=== PATIENT | male | born 1985 | race Caucasian/White ===

== ENCOUNTER 2020-09-03 08:49 | Outpatient (REF) | payer OTHER, SELFPAY ==
[2020-09-03 09:11] LABS: COVID-19 Test Negative (Negative)
== END 2020-09-03 08:50 | disposition home or self-care (01) ==
LOC: HO.LAB 08:49
PROVIDERS: PCP Physician Assistant; Visit Provider Internal Medicine
DX: Z20.828 Contact with and (suspected) exposure to other viral communicable diseases (principal)
CPT/HCPCS: 87635

== ENCOUNTER 2020-09-17 12:56 | Outpatient (REF) | payer OTHER, SELFPAY ==
[2020-09-17 13:19] LABS: COVID-19 Test Negative (Negative)
== END 2020-09-17 12:57 | disposition home or self-care (01) ==
LOC: HO.LAB 12:56
PROVIDERS: Visit Provider Internal Medicine
DX: Z20.828 Contact with and (suspected) exposure to other viral communicable diseases (principal)
CPT/HCPCS: 87635

== ENCOUNTER 2020-11-10 14:36 | Outpatient (REF) | payer OTHER, SELFPAY ==
[2020-11-10 15:00] LABS: COVID-19 Test Negative (Negative)
== END 2020-11-10 14:37 | disposition home or self-care (01) ==
LOC: HO.EMPCOV 14:36
PROVIDERS: PCP Physician Assistant; Visit Provider Internal Medicine
DX: Z20.828 Contact with and (suspected) exposure to other viral communicable diseases (principal)
CPT/HCPCS: 87635; C9803

== ENCOUNTER 2021-02-06 08:28 | Outpatient (REF) | payer OTHER, SELFPAY ==
[2021-02-06 09:17] LABS: COVID-19 Test Negative (Negative)
== END 2021-02-06 08:29 | disposition home or self-care (01) ==
LOC: HO.LAB 08:28
PROVIDERS: PCP Physician Assistant; Visit Provider Internal Medicine
DX: Z20.822 Contact with and (suspected) exposure to COVID-19 (principal)
CPT/HCPCS: 36415; 87635

== ENCOUNTER 2022-04-04 13:45 | Outpatient (REF) | payer OTHER, SELFPAY | END 2022-04-04 13:46 | disposition home or self-care (01) | LOC: HO.HOSX 13:45 | PROVIDERS: PCP Physician Assistant; Visit Provider Physician Assistant | DX: Z13.89 Encounter for screening for other disorder (principal) ==

== ENCOUNTER 2022-04-20 07:28 | Outpatient (REF) | payer OTHER, SELFPAY ==
--- NOTE | ~2022-04-20 | XR_ITS ---
EXAMINATION: XR CLAVICLE, LEFT CLINICAL INFORMATION: Left shoulder COMPARISON: 04/02/2022 TECHNIQUE: 2 views of left clavicle of the left clavicle. FINDINGS: There is comminuted fracture of midshaft of left clavicle with overlapping fragments, unchanged significantly since the previous study. XR/XR clavicle LT IMPRESSION: Stable clinical or fracture
== END 2022-04-20 07:29 | disposition home or self-care (01) ==
LOC: HO.HOSX 07:28
PROVIDERS: Visit Provider Physician Assistant
DX: S42.002D Fracture of unspecified part of left clavicle, subsequent encounter for fracture with routine healing (principal)
CPT/HCPCS: 73000

== ENCOUNTER 2022-05-04 07:54 | Outpatient (REF) | payer OTHER, SELFPAY ==
--- NOTE | ~2022-05-04 | XR_ITS ---
EXAMINATION: XR CLAVICLE, LEFT CLINICAL INFORMATION: Fracture mid left clavicle. Follow-up. COMPARISON: Radiographs left clavicle 04/20/2022, left shoulder 05/22/2017 TECHNIQUE: Two views of the left clavicle. FINDINGS: Mid left clavicular fracture is stable from prior study 04/20/2022. Distal fracture fragment is inferior by almost one bone diameter and there is overlap of the fracture fragments by approximately 2.8 cm. Fracture line still seen. No significant callus formation. Acromioclavicular alignment normal. Left lung apex is clear. No pneumothorax or pleural reaction. XR/XR clavicle LT IMPRESSION: Mid left clavicular fracture, unchanged in alignment.
== END 2022-05-04 07:55 | disposition home or self-care (01) ==
LOC: HO.HOSX 07:54
PROVIDERS: Visit Provider Physician Assistant
DX: M89.8X1 Other specified disorders of bone, shoulder (principal)
CPT/HCPCS: 73000

== ENCOUNTER 2022-06-06 15:01 | Outpatient (REF) | payer OTHER, SELFPAY ==
--- NOTE | ~2022-06-06 | XR_ITS ---
EXAMINATION: XR CLAVICLE, LEFT CLINICAL INFORMATION: Left clavicle fracture follow up. COMPARISON: 05/04/2022 and studies dating back to 04/02/2022. TECHNIQUE: Two views of the left clavicle. FINDINGS: There is no change in alignment of the left clavicle fracture just proximal to the coracoclavicular ligaments. No periosteal new bone formation is appreciated. There remains overriding of the fracture fragments by approximately 2.5 cm. The acromioclavicular joint appears to be intact. There is no widening of the coracoclavicular space. No shoulder dislocation. XR/XR clavicle LT IMPRESSION: Stable appearance of left clavicle fracture as described.
== END 2022-06-06 15:02 | disposition home or self-care (01) ==
LOC: HO.HOSX 15:01
PROVIDERS: Visit Provider Physician Assistant
DX: M89.8X1 Other specified disorders of bone, shoulder (principal)
CPT/HCPCS: 73000

== ENCOUNTER 2022-08-01 12:28 | Outpatient (REF) | payer OTHER, SELFPAY ==
--- NOTE | ~2022-08-01 | XR_ITS ---
EXAMINATION: XR CLAVICLE, LEFT CLINICAL INFORMATION: Left clavicle fracture COMPARISON: 05/27/2022 TECHNIQUE: Two views of the left clavicle. FINDINGS: Stable alignment of the mid left clavicle fracture with displacement and overriding. No definite osseous bridging. XR/XR clavicle LT IMPRESSION: No change in appearance of the overriding left clavicle fracture. No definite osseous bridging.
== END 2022-08-01 12:29 | disposition home or self-care (01) ==
LOC: HO.HOSX 12:28
PROVIDERS: Visit Provider Physician Assistant
DX: S92.002A Unspecified fracture of left calcaneus, initial encounter for closed fracture (principal)
CPT/HCPCS: 73000

== ENCOUNTER 2022-08-04 14:00 | Outpatient (RCR) | payer OTHER, SELFPAY ==
--- NOTE | 2022-05-24 10:47 | MHC.PT.EP ---
[facility] [place] Office [place] Office [place] Office [address] Amador Kimbrough [address] [phone] F: [phone] F: [phone] F: [phone] F: [phone] Physical Therapy Plan of Care Date of Evaluation: Date of Surgery: N/A Diagnosis: S42.002A: fracture of unspecified part of left clavicle, initial encounter for closed fracture (RC) Assessment: pt presents to physical therapy with pain, decreased range of motion, decreased strength, impaired functional mobility, impaired postural awareness, and gait deviations. pt is a good candidate for skilled PT due to age, potential remediation of impairments, typical disease/condition progression and prognosis, comorbidities, and motivation. pt would benefit from tailored strengthening and stretching exercise program, functional training, gait training, postural re-training, neuromuscular re-education, modalities as needed for pain, equipment safety demonstration. Frequency and Duration: The patient will be seen 2x/wk for 5 wks Short Term Goals: pt will be I w/ HEP to promote self-management of condition. 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 Fdc Goals: pt will improve L shoulder flexion and abduction to at least 4/5 to improve ease in carrying equipment at work. pt will report a statistically significant improvement in self-reported outcome measure, SPADI, to promote return to PLOF. Treatment Plan: Modalities to reduce pain, spasms and effusion. Manual therapy to restore motion and function. Therapeutic exercise to improve strength and flexibility. Neuromuscular re-education for posture and balance. Therapeutic activities to return to functional activities of daily living. Electronically signed by: Griselda Kruger PT, DPT Please sign and return to therapist. Thank you for your referral.
--- NOTE | 2022-08-05 15:56 | MHC.PT.DC ---
[facility] [place] Office [place] Office [place] Office [address] Amador Kimbrough [address] [phone] F: [phone] F: [phone] F: [phone] F: [phone] Physical Therapy Discharge Report Diagnosis: S42.002A: fracture of unspecified part of left clavicle, initial encounter for closed fracture (RC) Date of Surgery: N/A Date of Evaluation: 05/24/22 Date of Discharge: 08/05/22 Treatments to Date: 15 Cancellations to Date: 0 No Shows to Date: 0 Discharge Status: Improved Function Independent with HEP Discharge Summary: The patient overall has been consistently reporting little to no pain localized to clavicular region, little to no difficulty with household or work-related tasks, and overall improved function since starting PT. He is independent with his home exercise program for self-management of symptoms at this time. He is discharged from this physical therapy plan of care. Electronically signed by: Griselda Kruger PT, DPT Please sign and return to therapist. Thank you for your referral.
== END 2022-08-05 15:56 | disposition home or self-care (01) ==
LOC: HO.PT 14:00
PROVIDERS: PCP Physician Assistant; Visit Provider Physician Assistant
DX: S42.002A Fracture of unspecified part of left clavicle, initial encounter for closed fracture (principal)
CPT/HCPCS: 97110; 97161; 97530

== ENCOUNTER 2025-04-01 12:59 | Outpatient (AMB) | payer OTHER, SELFPAY ==
--- NOTE | 2025-04-01 13:00 | MHC.OFFVIS ---
Vital Signs 04/01/25 13:08 Height 5 ft 9 in Weight 131 lb 8 oz BMI 19.4 BP 118/68 Blood Pressure Location Lt brachial Position Sitting Pulse 70 Intake Visit Reasons: hernia Intake Note: Patient is seen in office for evaluation of a left groin hernia. Pt c/o: hernia left groin for about 10 yrs, no pain, feels tightness in the area, is schedule to have an ultrasound next Monday, denies n/v/d/c Butcher Fish Required: No Accompanied by: Self / Same As Patient Allergies No Known Allergies Allergy (Verified 04/01/25 13:07) Medication List - Last Reconciled 04/01/25 by Pedro Vallejo MD acetaminophen (Tylenol) 325 mg PO QID PRN HPI Comments Details: The patient is a 40-year-old male presenting with chronic right leg tightness. This sensation has persisted for approximately 11 years and is characterized as a pulling or tightness, not pain. The onset was gradual; the patient does not recall a specific event triggering the symptoms. There is no palpable mass or defined lump according to both the patient's and the physician's examination. The patient has noticed intermittent cramp-like sensations, but these are rare. There are no reported gastrointestinal changes. The patient associates the onset with previous employment at a [employer] center, implying a possible link to decreased physical activity during that period. Despite multiple evaluations, no definitive diagnosis has been determined, and an ultrasound is scheduled to assess the condition further. Additionally, there is left neck tightness currently undergoing evaluation through ultrasound. [facility] Social History Current occupational status: employed Current occupation: [employer] [place] [employer] [place] Review of Systems Const All systems reviewed & are unremarkable except as noted in HPI and below Physical Exam Const General: cooperative and no acute distress Nutritional Appearance: well nourished Orientation/consciousness: patient oriented x3 Limitations: no limitations HEENT Head: Yes normocephalic and Yes atraumatic Ears: hearing grossly normal bilaterally Resp Effort & Inspection: normal respiratory effort, no audible wheezes, no cough and no respiratory distress Cardio Jugular venous distension: no JVD GI Other: No palpable hernia noted in the left groin, no changes with Valsalva maneuvers. Patient points to an area along the lateral surface of the rectus muscle on the left side as the area of tightness. No palpable spigelian hernia in this location. Inspection: Yes normal to inspection Palpation (GI): Soft to palpation, nontender, no guarding and not rigid Abdomen image: 1. Area of tightness as reported by patient Skin Other: Warm, dry, no rash Neuro General: patient oriented x3 Extrem General: Yes no clubbing, cyanosis or edema Assessment & Plan Assessment & Plan (1) Left lower quadrant abdominal pain: Code(s): R10.32 - Left lower quadrant pain Category: Medical Plan 40-year-old male patient presenting with complaints of tightness in the left lower quadrant abdomen extending into the groin which has progressed over the past 11 years. No particular lump or pain has been noted however. He incidentally also notes some swelling in the left neck as well both of which are being worked up. He is awaiting an ultrasound of the left lower quadrant next week (Monday). Examination today revealed no definite hernia in the left inguinal region. The area of tightness seems to be more in the lateral rectus muscle edge on the left side. Findings may be most consistent with muscle strain either of the oblique muscles or the rectus muscle. I will review the ultrasound once completed and discuss further with Mr. Barajasftus. Coding Level of Care Code New Pt Level 4 (18053) Diagnoses Left lower quadrant abdominal pain R10.32
[2025-04-01 13:08] VITALS: BP 118/68; PULSE 70; BMI 19.4
== END 2025-04-01 13:34 | disposition home or self-care (01) ==
LOC: HO.HGS 13:00
PROVIDERS: PCP Physician Assistant; Visit Provider Surgery
DX: R10.32 Left lower quadrant pain (principal)
CPT/HCPCS: 99204

== ENCOUNTER 2025-04-08 13:51 | Outpatient (AMB) | payer OTHER, SELFPAY ==
--- NOTE | 2025-04-08 14:00 | A.OFFVIS_ITS ---
Intake Visit Reasons: Vasectomy Consult Intake Note: New Patient presents for initial visit for vasectomy consult Urology Medications: none Blood Thinner: none Children#2, Expected #0 Hands Hanger Required: No Accompanied by: Self / Same As Patient Allergies No Known Allergies Allergy (Verified 04/08/25 14:26) HPI Comments Details: Goyo is a very pleasant 40-year-old male patient of Dr. Castellon. He presents to the office today for - vasectomy evaluation Vasectomy evaluation The patient presents for vasectomy consultation.? He is currently He has fathered 2 children, with a single partner The youngest child is 3 years old? His partner is aware and permissive for a vasectomy Current form of control is none Current employment is marketing here at [employer] The vasectomy may be complicated due to a history of no complicating issues Patient education has been provided via AUA video, via printed information, risks of failure, recovery time, bruising and potential pain syndrome have been stressed Discussion today focused on the presence of vasectomy and the risks, benefits and alternatives that are available. Vasectomy as intended as a permanent form of control. Printed information and literature was provided to the patient. Overall there is a one in 2500 failure rate. This can occur at any time after vasectomy. Risks were discussed highlighting hematoma, spermatocele, epididymal congestion, development of sperm antibodies, and development of chronic pain estimated between 1-5%. The procedure was reviewed in detail. Anatomical diagrams of the male genitalia were used to explain the location of the vas deferens. The vas deferens will be transected, the proximal end will be cauterized, a metal clip would be applied to separate the 2 vas deferens ends. It was explained the procedure will be done in the office and takes approximately 10-15 minutes. Less common problems that arise with vasectomy include hematoma, bleeding, allergic reaction to anesthetic, epididymal infection, epididymal congestion, scrotal discomfort, spermatic leak, spermatic granuloma and the possibility of antisperm antibodies. He understands these risks and wishes to proceed. Consent was signed at the office today. He also understands that it takes 12 weeks for sperm to fully elisabeth ar the system. He will need to provide a semen sample at 12 weeks and if this is not clear a 2nd sample at 16 weeks. Medical clearance to stop using protection will only be provided if he satisfies published criteria for sperm clearance. [facility] Social History Current occupational status: employed Current occupation: [employer] [place] Review of Systems Const All systems reviewed & are unremarkable except as noted in HPI and below Physical Exam Const General: cooperative, healthy appearing, comfortable, no acute distress, well developed, alert and awake Nutritional Appearance: average body habitus Orientation/consciousness: patient oriented x3 Limitations: no limitations HEENT Head: Yes normal to inspection, Yes normocephalic and Yes atraumatic Ears: hearing grossly normal bilaterally Eyes General: appearance normal, both eyes and all related structures Neck Neck: Yes normal visual inspection and Yes trachea midline Chest Chest palpation & inspection: normal inspection of the chest Resp Effort & Inspection: normal respiratory effort and able to speak in complete sentences Cardio Rate: regular rate GI Inspection: Yes normal to inspection General: Yes no CVA tenderness Male General Exam: Yes normal external exam Penis: normal penis Meatus: meatus normal Scrotum: scrotum normal Testes: Testes normal Back/Spine/Pelvis Back: no CVA tenderness Skin General skin exam: no rashes or lesions noted Neuro General: patient oriented x3 Extrem General: Yes normal to inspection Psych Appearance: grossly normal and well kempt Mental Status: mental status grossly normal Speech and movement: Normal speech and movement present and Clear speech present Affect: normal affect Attitude: cooperative Thought process: Normal thought process present Thought content: Normal thought content present Insight: Fair insight present (Psych) Judgement: Fair judgement present (Psych) Assessment & Plan Assessment & Plan (1) Anxiety about health: Code(s): R45.89 - Other symptoms and signs involving emotional state Category: Medical (2) Vasectomy evaluation: Code(s): Z30.09 - Encounter for other general counseling and advice on contraception Category: Medical Plan Vasectomy was discussed at length; risks and benefits; as noted above. Consent obtained. Prescriptions provided; we discussed importance of bringing medication to office day of procedure. All questions were answered. We discussed semen analysis in office verses fellows kit Will schedule for in office vasectomy Follow-up per doctor's orders; or sooner with any issues, concerns, and or questions Medications: New diazepam (Valium) take one tab when arrive for procedure 2 mg PO DAILY 2 tabs 0RF anxiety R45.89 - Other symptoms and signs involving emotional state tramadol 50 mg PO Q8H PRN 7 tabs 0RF pain N43.3 - Hydrocele, unspecified tramadol 50 mg PO Q8H PRN 7 tabs 0RF pain N43.3 - Hydrocele, unspecified diazepam (Valium) take one tab when arrive for procedure 2 mg PO DAILY 2 tabs 0RF anxiety R45.89 - Other symptoms and signs involving emotional state Patient Instructions: The patient had an opportunity to ask questions regarding the treatment plan. All questions were answered. Physical exam, labs, and imaging were discussed and reviewed in detail. As well as risks, benefits, and discussion of treatment choices. No major barriers to understanding were identified. The patient expressed understanding and agreement with the above treatment plan. The patient was made aware they should contact our office by phone for worsening of their current condition, the appearance of new symptoms, or with any questions or concerns. Compliance is encouraged with any medications and follow up testing that is ordered. It is a privilege to be allowed the opportunity to participate in? your urological care.? Again, if you have any questions or concerns If you have any questions or concerns please do not hesitate to contact me. The office is [phone]. This note is constructed using voice recognition software. While every effort has been made to ensure accuracy boom conveyor operator errors may have been included. Yours sincerely, KIARRA Macias Coding Level of Care Code New Pt Level 4 (15414) Diagnoses Anxiety about health R45.89 Vasectomy evaluation Z30.09
== END 2025-04-08 15:01 | disposition home or self-care (01) ==
LOC: HO.HUSH 13:52
PROVIDERS: PCP Physician Assistant; Visit Provider Nurse Practitioner Family
DX: R45.89 Other symptoms and signs involving emotional state (principal); Z30.09 Encounter for other general counseling and advice on contraception
CPT/HCPCS: 99204

== ENCOUNTER → 2025-04-08 13:51 | Outpatient (BNVA) | payer OTHER, SELFPAY | PROVIDERS: PCP Physician Assistant; Visit Provider Nurse Practitioner Family ==

== ENCOUNTER 2025-04-09 15:26 | Outpatient (REF) | payer OTHER, SELFPAY ==
--- NOTE | ~2025-04-09 | US_ITS ---
CLINICAL HISTORY: mass left side neck US neck nonvascular Comparison: None Findings: Sonographic evaluation of the soft tissues of the left side of the neck showed no discrete solid or cystic mass shadowing or calcifications. Homogeneous echotexture left lobe of the thyroid gland. Impression: No sonographic correlate to the area of clinical concern soft tissues left neck This document has been electronically signed by: Kaveh William MD on 04/10/2025 11:23:14
--- NOTE | ~2025-04-09 | US_ITS ---
CLINICAL HISTORY: Abdominal fullness LLQ US pelvis limited with color Doppler Comparison: None Findings: Sonographic evaluation in the area of clinical concern left suprapubic area showed no discrete masses lymphadenopathy or hernia. The iliac vessels are patent. Impression: 1. No sonographic correlate to the area of clinical concern left suprapubic area. This document has been electronically signed by: Kaveh William MD on 04/10/2025 11:33:06
== END 2025-04-09 15:27 | disposition home or self-care (01) ==
LOC: HO.US 15:26
PROVIDERS: PCP Family Medicine; Visit Provider Family Medicine
DX: R22.1 Localized swelling, mass and lump, neck (principal)
CPT/HCPCS: 76536; 76857

== ENCOUNTER → 2025-04-09 15:28 | Outpatient (BNV) | payer OTHER, SELFPAY | PROVIDERS: PCP Family Medicine; Visit Provider Radiology Diagnostic Radiology | DX: R22.1 Localized swelling, mass and lump, neck (principal); R14.0 Abdominal distension (gaseous); R10.32 Left lower quadrant pain | CPT/HCPCS: 76536; 76857 ==

== ENCOUNTER 2025-05-01 15:17 | Outpatient (REF) | payer OTHER, SELFPAY ==
[2025-05-03 06:54] LABS: Lyme Abs Screen <0.90 index
[2025-05-06 21:49] LABS: Babesia IgG <1:64 titer (<1:64); Babesia IgM <1:20 titer (<1:20)
[2025-05-07 22:43] LABS: A. Phagocytophilum Ab IgG <1:64 (<1:64); A. Phagocytophilum Ab IgM <1:20 (<1:20); E. Chaffeensis Ab IgG <1:64 (<1:64); E. Chaffeensis Ab IgM <1:20 (<1:20)
== END 2025-05-01 15:18 | disposition home or self-care (01) ==
LOC: HO.LAB 15:17
PROVIDERS: PCP Family Medicine; Visit Provider Physician Assistant Medical
DX: R50.9 Fever, unspecified (principal)
CPT/HCPCS: 36415; 86617; 86618; 86666; 86753

== ENCOUNTER 2025-07-11 14:43 | Outpatient (AMB) | payer OTHER, SELFPAY ==
--- OUTSIDE RECORDS SUMMARY | 2025-07-11 14:47 | XMS_ITS | Clinical Summary ---
Author Organization [facility] Address [address] [address] [place] [phone] Phone Care Team Providers Care Assembly Member Name Role Phone Tabitha Hale MD, MPH Primary Care Provid er Allergies No known active allergies Medications No known medications Active Problems No known active problems Encounters Date Type Department Care Team Description 05/09/2025 Orders Only [facility] [address] [place] [address] Tabitha Hale MD, MPH 05/07/2025 Orders Only [facility] [address] [place] [address] Provider, MD Maykel 05/01/2025 9:40 AM EDT Telemedicine [facility] [address] [place] [id number] Linda Ac, PAHariC Febrile illness, acute (Primary Dx); Left lower quadrant abdominal pain from Last 3 Months Immunizations Immunization Administration Dates Next Due Influenza Quadrivalent Prese rvative Free IM 09/13/2023,09/14/2021,09/16/2020,2018 Influenza Quadrivalent w/ Preservative IM 11/18/2019 Tdap 04/02/2022,04/20/2014,11/20/2013 Family History Medical History Relation Comments Alcohol use disorder Father Lung cancer Maternal Grandfather Lung cancer Paternal Grandfather Relation Status Comments Father Passed at 47 due to liver failure, long-term alcohol abuse. Maternal Grandfather Paternal Grandfather Social History Tobacco Use Types Packs/Day Years Used Date Smoking Tobacco: Never Passive Smoke Exposure: Past Smokeless Tobacco: Never Tobacco Cessation:Counseling Given: Not Answered Alcohol Use Standard Drinks/Week Comments Yes 0 (1 standard drink = 0.6 oz pur e alcohol) a few times a week Child or Family Care Answer Date Record ed Do you have problems with on e of the following making it difficult for you to work, study, or receive health care? No 02/14/2025 Education Answer Date Recorded Are you interested in help w ith more adult education (for example, completing high school, GED, job training, learning the Qatari language, technical skills, or developing parenting skills)? No 02/14/2025 Are you concerned about learning? Not on file 02/14/2025 No 02/14/2025 Yes 02/14/2025 Food Answer Date Recorded Within the past 6 months we worried whether our food would run out before we got money to buy more. Never True 02/14/2025 Within the past 6 months the food we bought just didn't last and we didn't have enough money to get more. Never True Residential Stability Answer Date Recor ded What is your housing situation today? I have [facility] 02/14/2025 How many times have you move d in the past 12 months? Zero (I did not move) 02/14/2025 Paying for Meds Answer Date Recorded Do you have trouble paying for medicines? No 02/14/2025 Paying Utility Bills Answer Date Record ed Do you have trouble paying your heating or elect ricity bill? No 02/14/2025 Transportation Answer Date Recorded Has the lack of transportati on kept you from medical appointments or from getting medications? No 02/14/2025 Unemployment Answer Date Recorded Are you currently unemployed or working on a part-time or temporary basis, and looking for work? No 02/14/2025 Digital Access Answer Date Recorded No 02/14/2025 Yes 02/14/2025 Do you have reliable internet access at home? Ye s 02/14/2025 Do you have a device (e.g., phone, tablet, computer) with a working camera? Yes 02/14/2025 Intimate Partner Violence Answer Date R ecorded Denied Basic Needs Not on file 02/14/2025 In the past 12 months have y ou been in a relationship with a person who hurts, threatens, or tries to control you? No 02/14/2025 Worried food would run out Not on file 02/14 In the past 12 months have y ou been in a relationship with a person who hurts, threatens, or tries to control you? No 02/14/2025 Sex and Gender Information Value Date Recorded Sex Assigned at Not on file Legal Sex Male 10:23 AM EDT Gender Identity Not on file Sexual Orientation Not on file Last Filed Vital Signs Vital Sign Reading Time Taken Comments Blood Pressure 102/52 02/14/2025 12:55 PM EDT Pulse 69 02/14/2025 12:55 PM EDT Temperature 36.5 C (97.7 F) 04/02/2022 10:31 AM EDT Respiratory Rate 18 04/02/2022 10:3 1 AM EDT Oxygen Saturation 98% 02/14/2025 12: 55 PM EDT Inhaled Oxygen Concentration - - Weight 59.3 kg (130 lb 12.8 oz) 025 12:55 PM EDT Height 175.5 cm (5' 9.09 ) 02/14/2025 1 2:55 PM EDT Body Mass Index 19.26 02/14/2025 12:55 PM EDT Plan of Treatment Health Maintenance Due Date Last Done Comments LIPID PANEL 1984 HEPATITIS C SCREENING 2002 HIV ONE-TIME SCREENING (18-6 5 YEARS) 2002 COVID-19 VACCINE (4 - 2023-2 5 season) 2024 12/10/2021, 12/10/2020, 11/16/2020 DEPRESSION SCREENING 02/14/2026 02/14/2025 Adult Td,Tdap Booster 04/02/2032 04/02/2022 , 04/20/2014, 11/20/2013 SMOKING STATUS SCREENING (On ce After 26 Yrs) Completed 02/14/2025 HEPATITIS A VACCINES Aged Out No long er eligible based on patient's age to complete this topic HIB VACCINES Aged Out No longer eligi ble based on patient's age to complete this topic MENINGOCOCCAL VACCINES (ACWY) Aged Out No longer eligible based on patient's age to complete this topic MENINGOCOCCAL VACCINES (B) Aged Out N o longer eligible based on patient's age to complete this topic PNEUMOCOCCAL VACCINES (0-49 years) Aged Out No longer eligible b ased on patient's age to complete this topic Medical Devices Not on file Procedures Procedure Name Priority Date/Time Associated Diagnosis Comments OUTSIDE LAB Routine 05/01/2025 1:07 PM EDT OUTSIDE LAB Routine 05/01/2025 1:06 PM EDT LYME SCREEN WITH REFLEX TO WESTERN BLOT, BLOOD Routine 05/01/2025 11:17 AM EDT Febrile illness, acute OUTSIDE LAB Routine 05/01/2025 9:51 AM EDT from Last 3 Months Results * Outside Lab (05/01/2025 1:07 PM EDT) Only the most recent of3 resultswithin the time period is included. Historical Provider LAB BLOOD ORDERABLES Edit ed Result - Final * Lyme Screen with Reflex to Immunoblot, Blood (05/01/2025 11:17 AM EDT) Blood Linda Ac PA-C LAB BLOOD ORDERABLES [place] Result EXTERNAL NON-INTERFACED REF LAB from Last 3 Months Insurance [employer] Care Teams Assembly Member Relationship Specialty Start Date End Date Tabitha Hale MD, MPH [address] [place] [id number] [email or web address] PCP - General Family Medicine 02/14/25 Additional Source Comments The information contained in this document represents components of the legal health record. It is not the complete legal health record.[facility]
--- NOTE | 2025-07-11 14:51 | A.OFFVIS_ITS ---
Intake Visit Reasons: Vasectomy Intake Note: Patient presents for vasectomy Urology Medications: none Blood Thinner: none Children#2, Expected #0 Iso Coordinator Required: No Accompanied by: Self / Same As Patient Allergies No Known Allergies Allergy (Verified 07/11/25 14:51) HPI Comments Details: Goyo is a very pleasant 40-year-old male patient of Dr. Castellon. He presents to the office today for - vasectomy procedure Vasectomy procedure The patient presents for vasectomy procedure.? He is currently He has fathered 2 children, with a single partner The youngest child is 3 years old? His partner is aware and permissive for a vasectomy Current form of control is none Current employment is marketing here at [employer] Social History Current occupational status: employed Current occupation: [employer] [place] [place] Review of Systems Const Denies chills and Denies fever(s) Card Reports no additional complaints and Denies syncope Resp Denies cough GI Denies abdominal pain and Denies heartburn Reports as per HPI and Denies change in libido Neuro Denies syncope Psych Denies change in libido Endo Denies change in libido Physical Exam Const General: cooperative, healthy appearing, comfortable and no acute distress Orientation/consciousness: patient oriented x3 HEENT Face and sinus: Yes normal facial exam Mouth: moist mucous membranes Neck Neck: Yes normal visual inspection, Yes full ROM and Yes trachea midline Chest Chest palpation & inspection: normal inspection of the chest Resp Effort & Inspection: normal respiratory effort, able to speak in complete sentences and no respiratory distress GI Inspection: Yes normal to inspection Back/Spine/Pelvis Cervical Spine: normal cervical lordosis Thoracic/Lumbar Spine: thoracic and lumbar spine normal to inspection Skin General skin exam: no rashes or lesions noted Neuro General: patient oriented x3, gait normal, tone normal and moves all extremities Extrem General: Yes normal to inspection and Yes capillary refill normal Office Procedures Vasectomy Details: Preoperative diagnosis: Anxiety regarding Postoperative diagnosis: Anxiety regarding unplanned Procedure: Bilateral vasectomy Informed consent had been completed. Preoperative and postoperative instructions were provided to the patient. The patient has transportation to home identified at the completion of the procedure. Anti-anxiolytic prescription medication had been taken after consent verification and all questions answered. Tylenol with Codeine pain medication was also provided. The penis was elevated using a rubber band that was attached to the patient's shirt. Both vasa were palpated through the skin using a 3 finger technique and the penoscrotal junction was prepped with Betadine. After Betadine application the left vas was elevated using a 3 finger grasping technique. 1% lidocaine was used to create a subdermal bubble. Further anesthetic was then advanced using the 25-gauge needle along the vasa in a proximal fashion. Approximately 2 minutes were allowed to for local anesthetic uptake. Using the sharp spreading instrument the scrotal skin was spread longitudinally in line with the vasa until the subdermal layer had been divided. The vasa was then elevated from the scrotum using a ring clamp. Care was taken to elevate the superior portion of the vasa by rotating the ring clamp in a caudad direction. The battery powered cautery was used to divide the vasal sheath in a longitudinal direction on the exposed vasa and to strip the vasal sheath from the vasa. A 2nd narrower ring clamp was placed on the exposed vas and used to lift the vas from the vasal sheath. so it grasped the elevated vas. The cautery was used to divide vasal attachments and allow full exposure of a small loop of vasa. The sharp spreading instrument was then used to create a tunnel under the vasa and spread to allow the blood vessels of the vasa to retract from the vasa. A mosquito clamp was placed on the proximal portion of the vas. The battery- powered cautery was used to make a partial division in the proximal vas and then inserted in order to cauterize the proximal end of the vas. This was then cut and allowed to retract into the vasal sheath. The mosquito was then used to twist the vasa 180 degrees creating a fascial interposition. Using a 4-0 chromic suture the fascial interposition was sutured closed. The distal portion of the vas was then cut in order to obtain a segment of vasa. The vasa were allowed to retract back into the scrotum. A small snap was then used to approximate the skin edges and allow hemostasis without placement of a suture. A similar procedure was repeated on the right side. He tolerated the procedure well. Triple antibiotic was applied. A gauze was applied. An ice pack was applied to assist with minimizing swelling. Postoperative instructions were confirmed. He understands the need to continue to use control methods. A semen sample should be brought for inspection under the microscope in 10-12 weeks. CPT 48783 Vasectomy performed by: Talon Penn Time out checklist: patient, procedure, site marked/identified, positioning of patient, supplies available, allergies confirmed and team agrees on procedure Anesthetic used: other Specimens: vas segments not sent to pathology 34171 - Vasectomy Office Meds lidocaine (PF) 10 mg/mL (1 %) injection solution Performing Provider: Talon Penn MD [facility] [place] Administered by: Talon Penn MD on 07/11/25 15:35 Dose Route Admin Location Dispensed Lot Number Expiration Date [facility] Stopper Grinder 2 mL Infiltration 10 mL Total Dispensed Waste 10 mL 0 % Assessment & Plan Assessment & Plan (1) Anxiety about health: Code(s): R45.89 - Other symptoms and signs involving emotional state Category: Medical Plan Three-month follow-up check semen Orders: Orders AMB Vasectomy Today R45.89 - Other symptoms and signs involving emotional state Patient Instructions: This note is constructed using voice recognition software. While every effort has been made to ensure accuracy utility systems repairer operator errors may have been included. Imaging studies, laboratory and physical exam results were discussed and reviewed in detail. No major barriers to patient understanding were identified. An opportunity to ask questions regarding the treatment plan was provided. All questions were answered. The patient expressed understanding and agreement with the above treatment plan. The patient is aware they should contact our office by phone for worsening of their current condition or the appearance of new urologic symptoms. Compliance is encouraged with any medications and followup testing that is ordered. It is a privilege to participate in the urologic care of your patient. If you have any questions or concerns regarding treatment for the above conditions, or other urologic issues, please do not hesitate to contact me. The office telephone contact is [phone]. Sincerely, Dr Talon Penn MD, [facility] - Urology Compassionate Specialist Care for the Genitourinary System Coding Level of Care Code Procedure Only Diagnoses Anxiety about health R45.89 CPT Codes Office Procedure - CPT: 63786 - Vasectomy ([id number])
== END 2025-07-11 15:45 | disposition home or self-care (01) ==
LOC: HO.HUSH 14:43
PROVIDERS: PCP Family Medicine; Visit Provider Urology
DX: Z30.2 Encounter for sterilization (principal); R45.89 Other symptoms and signs involving emotional state
CPT/HCPCS: 55250

== ENCOUNTER → 2025-07-11 14:43 | Outpatient (BNVA) | payer OTHER, SELFPAY | PROVIDERS: PCP Family Medicine; Visit Provider Urology | DX: Z30.2 Encounter for sterilization (principal); R45.89 Other symptoms and signs involving emotional state | CPT/HCPCS: 55250; J2003 ==

== ENCOUNTER 2025-10-01 15:14 | Outpatient (AMB) | payer OTHER, SELFPAY ==
--- NOTE | 2025-10-01 15:18 | MHC.OFFVIS ---
Intake Visit Reasons: 3m semen analysis Intake Note: Patient is present for Semen Analysis Urology Med: None Antibiotic Allergy: None Blood Thinner: None Allergies No Known Allergies Allergy (Verified 07/11/25 14:51) HPI Comments Details: Goyo is a very pleasant 40-year-old male patient of Dr. Castellon. He presents to the office today for - family planning anxiety about health - vasectomy follow-up Did think he passed a kidney stone relatively recently Last kidney stone 15 years ago Plan on rechecking in 12 month Vasectomy follow-up The patient presents for vasectomy follow-up He is currently He has fathered 2 children, with a single partner The youngest child is 3 years old? His partner is aware and permissive for a vasectomy Current form of control is none Current employment is marketing here at [employer] Social History Current occupational status: employed Current occupation: [employer] [place] Review of Systems Const Denies chills and Denies fever(s) Card Reports no additional complaints and Denies syncope Resp Denies cough GI Denies abdominal pain and Denies heartburn Reports as per HPI and Denies change in libido Neuro Denies syncope Psych Denies change in libido Endo Denies change in libido Physical Exam Const General: cooperative, healthy appearing, comfortable and no acute distress Orientation/consciousness: patient oriented x3 HEENT Face and sinus: Yes normal facial exam Mouth: moist mucous membranes Neck Neck: Yes normal visual inspection, Yes full ROM and Yes trachea midline Chest Chest palpation & inspection: normal inspection of the chest Resp Effort & Inspection: normal respiratory effort, able to speak in complete sentences and no respiratory distress GI Inspection: Yes normal to inspection Back/Spine/Pelvis Cervical Spine: normal cervical lordosis Thoracic/Lumbar Spine: thoracic and lumbar spine normal to inspection Skin General skin exam: no rashes or lesions noted Neuro General: patient oriented x3, gait normal, tone normal and moves all extremities Extrem General: Yes normal to inspection and Yes capillary refill normal Assessment & Plan Assessment & Plan (1) Nephrolithiasis: Code(s): N20.0 - Calculus of kidney Category: Medical Plan Twelve month follow-up renal ultrasound Patient Instructions: This note is constructed using voice recognition software. While every effort has been made to ensure accuracy pick pulling machine tender errors may have been included. Imaging studies, laboratory and physical exam results were discussed and reviewed in detail. No major barriers to patient understanding were identified. An opportunity to ask questions regarding the treatment plan was provided. All questions were answered. The patient expressed understanding and agreement with the above treatment plan. The patient is aware they should contact our office by phone for worsening of their current condition or the appearance of new urologic symptoms. Compliance is encouraged with any medications and followup testing that is ordered. It is a privilege to participate in the urologic care of your patient. If you have any questions or concerns regarding treatment for the above conditions, or other urologic issues, please do not hesitate to contact me. The office telephone contact is [phone]. Sincerely, Dr Talon Penn MD, [facility] - Urology Compassionate Specialist Care for the Genitourinary System Coding Level of Care Code Est Pt Level 3 (78133) Diagnoses Nephrolithiasis N20.0
--- OUTSIDE RECORDS SUMMARY | 2025-10-01 18:28 | XMS_ITS | Clinical Summary ---
Author Organization [facility] Address [address] [facility] [address] [place] [id number] Phone Care Team Providers Care Brakes Inspector Name Role Phone Tabitha Hale MD, MPH Primary Care Provid er Allergies No known active allergies Medications No known medications Active Problems No known active problems Immunizations Immunization Administration Dates Next Due Influenza [...] high school, GED, job training, learning the Macedonian language, technical skills, or developing parenting skills)? [...] HEPATITIS C SCREENING 2002 HIV ONE-TIME SCREENING (18-65 YEARS) 2002 INFLUENZA VACCINE (#1) 2025 , 09/14/2021, 09/16/2020, Additional history exists COVID-19 VACCINE ( season) 2025 12/10/2021, 12/10/2020, 11/16/2020 DEPRESSION SCREENING 02/14/2026 02/14/2025 Adult Td,Tdap Booster 04/02/2032 04/02/2022 , 04/20/2014, 11/20/2013 SMOKING STATUS SCREENING (Once After 26 Yrs) Completed 02/14/2025 HEPATITIS A [...] (0-49 years) Aged Out No longer eligible based on patient's age to complete this topic Medical Devices Not on file Insurance [employer] Member Subscriber Plan / Payer (Ef fective 2019-Present) Name:Goyo Ch Relation to Subscriber:Self Name:Goyo Ch Payer ID:[id number] ([facility]) Type:PPO Address: [place] [phone] Member Subscriber Plan / Payer (Ef fective 2019-Present) Name:JingGoyo Relation to Subscriber:Self Name:JingGoyo stout Payer ID:[id number] ([facility]) Type:PPO Address: [address] [employer] Member Subscriber Plan / Payer (Ef fective 2019-Present) Name:JingGoyo stout Relation to Subscriber:Self Name:Jing Goyo Payer ID:[id number] ([facility]) Type:PPO Address: [place] [id number] [employer] Member Subscriber Plan / Payer (Ef fective 2019-Present) Name:Goyo Ch Relation to Subscriber:Self Name:Goyo Ch Payer ID:[id number] ([facility]) Type:PPO Address: [place] [id number] [employer] Member Subscriber Plan / Payer (Ef fective 2019-Present) Name:JingGoyo stout Relation to Subscriber:Self Name:Goyo Ch Payer ID:[id number] ([facility]) Type:PPO Address: [place] [id number] [employer] Member Subscriber Plan / Payer (Ef fective 2019-Present) Name:Goyo Ch Relation to Subscriber:Self Name:Jing Goyo Payer ID:[id number] (NA) Type:PPO Address: [place] [id number] [employer] BENEF[employer] AD[employer]ISTRAT[employer] [facility] [employer] ADMINISTRAT[employer] B[employer] Care Teams Brakes Inspector Relationship Specialty Start Date End Date Tabitha Hale MD, MPH [address] [place] [id number] [email or web address] PCP - General Family Medicine 02/14/25 Additional Source Comments The information contained in this document represents components of the legal health record. It is not the complete legal health record.[facility]
== END 2025-10-01 15:38 | disposition home or self-care (01) ==
LOC: HO.HUSH 15:14
PROVIDERS: PCP Family Medicine; Visit Provider Urology
DX: N20.0 Calculus of kidney (principal)
CPT/HCPCS: 99024